=== PATIENT | female | born 1950 | race Caucasian/White ===

== ENCOUNTER 2016-11-20 14:52 | Outpatient (CLI) | payer OTHER ==
--- NOTE | 2016-11-20 16:26 | DIAGNOSTIC IMAGING REPORT ---
PROCEDURE: US SOFT TISSUE THYR/NECK/HEAD INDICATION: Follow-up thyroid nodules. TECHNIQUE: Platt scale and color Doppler sonographic images of the thyroid gland were obtained. COMPARISON: Comparison is made to thyroid ultrasound on 01/26/2014. FINDINGS: RIGHT LOBE: Right lobe as of normal size (4.2 x 2.1 x 1.7 cm). There are three to four small benign appearing ovoid thyroid nodules consistent with a benign adenomas (largest 10 mm). LEFT LOBE: Left lobe of the thyroid is of normal size 94.2 x 1.8 x 1.6 cm). There are three to four benign appearing ovoid nodular densities consistent with benign adenomas (largest 12 mm). ISTHMUS: The isthmus is of normal size (3 mm) with a 5 mm ovoid benign nodule. IMPRESSION: 1. Normal sized multinodular thyroid gland. Minimal increase in small benign appearing bilateral nodules consistent with benign adenomas.
--- NOTE | 2016-11-20 16:44 | DIAGNOSTIC IMAGING REPORT ---
PROCEDURE: US BREAST ULTRASOUND - LEFT INDICATION: Screening breast ultrasound. (Patient declines mammographic screening). History of scarring and prior breast surgeries. TECHNIQUE: High resolution cummings scale and color Doppler sonographic images of the bilateral breasts. COMPARISON: Comparison is made to bilateral breast ultrasound on 01/26/2014. FINDINGS: Right breast ultrasound: Mildly heterogeneous tissue of the right breast with areas of increased echogenicity in the upper central right breast. There are 3 mm 4 mm ovoid shadowing areas in the lateral right breast consistent with calcified oil cysts. Left breast ultrasound: Heterogeneous tissue in the upper outer left breast remains stable. There is a 9 mm echogenic shadowing focus in the lower inner left breast consistent with calcified oil cyst. IMPRESSION: 1. Stable bilateral breast ultrasound. 2. Findings were discussed with the patient including the limitations of screening breast ultrasound, and the usual recommendation for screening mammography (if the patient inclined). RESULT CODE: 2- Benign finding(s). A. A negative report should not delay biopsy if a dominant or clinically suspicious mass is present. 10-15% of cancers are not identified by x-ray. B. A negative report may reinforce clinical impression. C. Adenosis and dense breasts may obscure an underlying neoplasm. D. False positive reports average 6-10%. E.. A yearly screening mammogram is recommended. A reminder letter will be scheduled.
== END 2016-11-20 23:00 ==
LOC: US SRH 14:52
DX: E04.9 Nontoxic goiter, unspecified (principal); Z12.39 Encounter for other screening for malignant neoplasm of breast